=== PATIENT | male | born 1975 | race Caucasian/White ===

== ENCOUNTER 2024-10-01 19:58 | Emergency (ER) | payer SELFPAY ==
[~2024-10-01] VITALS: Ht 172.7 cm; Wt 91.0 kg
[2024-10-01 20:01] VITALS: BP 102/69; PULSE 114; RESP 20; TEMP 36.9; O2SAT 98
[2024-10-01] MEDS: METOCLOPRAMIDE HCL 10MG/2ML VIAL IV ONE (20:34)
[2024-10-01] MEDS: SODIUM CHLORIDE 0.9% 1,000 ML IV ONE (20:35)
== END 2024-10-01 20:50 | disposition left against medical advice (07) ==
LOC: ER 19:58
DX: R07.9 Chest pain, unspecified (principal); R00.0 Tachycardia, unspecified; I10 Essential (primary) hypertension
CPT/HCPCS: 99291; 96374; 96361; 71045; 93005; J2765; J7030